=== PATIENT | female | born 1980 | race Caucasian/White ===

== ENCOUNTER 2018-06-17 12:30 | Day surgery (SDC) | payer OTHER ==
[2018-06-17] MEDS ORDERED: DIAZEPAM 5 MG TAB ONE (12:36)
[2018-06-17 12:50] VITALS: O2SAT 98
[2018-06-17] MEDS ORDERED: DEXAMETHASONE SOD PHOS PF 10 MG/ML SOL IJ ONE (12:57)
[2018-06-17] MEDS ORDERED: BUPIVACAINE HCL 0.25% MPF 30 ML SOL INFIL ONE (12:57)
[2018-06-17 14:12] VITALS: BP 110/70; PULSE 63; RESP 12; TEMP 99.1
== END 2018-06-17 14:08 | disposition home or self-care (01) | DRG 552 ==
LOC: SURG 12:30
PROVIDERS: ATTEND Nurse Anesthetist, Certified Registered
DX: M51.17 Intervertebral disc disorders with radiculopathy, lumbosacral region (principal); M53.86 Other specified dorsopathies, lumbar region
CPT/HCPCS: A9270-GY; J1100